=== PATIENT | female | born 1980 | race Caucasian/White ===

== ENCOUNTER 2019-05-03 01:15 | Emergency (ER) | payer BC, OTHER ==
--- NOTE | 2019-05-03 02:20 | ED ---
Laceration/Wound HPI - HPI Summary HPI Summary: A 39 y/o female brought in by [facility] accompanied by family presents to [facility] with a chief complaint of a laceration to her forehead above her right eye after tripping over her dog today and hitting her head on the bedpost. The patient rated her pain at triage as a 6/10 in severity. She claims that it is not painful to move her right eye. She is unsure about her last tetanus. - History of Current Complaint Stated Complaint: HEAD LAC PER EMS Time Seen by Provider: 05/03/19 01:59 Hx Obtained From: Patient Onset/Duration: Sudden Onset, Lasting Hours, Still Present Aggravating: Nothing Alleviating: Nothing Onset Severity: Moderate Current Severity: Moderate Pain Intensity: 6 Pain Scale Used: 0-10 Numeric Associated Signs & Symptoms: Negative - fever - Allergy/Home Medications Allergies/Adverse Reactions: Allergies Allergy/AdvReac Type Severity Reaction Status Date / Time No Known Allergies Allergy Verified 03/08/16 16:05 PMH/Surg Hx/FS Hx/Imm Hx Sensory History: Denies: Hx Deafness EENT History: Denies: Hx Deafness - Immunization History Date of Tetanus Vaccine: unk Immunizations Up to Date: Yes Infectious Disease History: No Infectious Disease History: Denies: Traveled Outside the [place] in Last 30 Days - Family History Known Family History: Positive: None - Social History Alcohol Use: Weekly Alcohol Amount: 5 drinks Hx Substance Use: No Substance Use Type: Reports: None Hx Tobacco Use: Yes Smoking Status (MU): Heavy Every Day Tobacco Smoker Type: Cigarettes Have You Smoked in the Last Year: Yes Review of Systems Negative: Fever Positive: Other - positive: able to move right eye around Positive: Other - positive: laceration above right eye All Other Systems Reviewed And Are Negative: Yes Physical Exam - Summary Physical Exam Summary: Constitutional: Well-developed, Well-nourished, Alert. (-) Distressed Skin: Warm, Dry, laceration is deep to muscle belly on forehead, laceration is crescent shaped 9 cm, lower part of laceration extends onto upper eyelid, full function of ferrule of brow, HENT: Normocephalic; Atraumatic Eyes: Conjunctiva normal, she is able to open and close eyelid without issue, EOMI and painless, pupils are equal and round and reactive. Neck: Musculoskeletal ROM normal neck. (-) JVD, (-) Stridor, (-) Tracheal deviation Cardio: Rhythm regular, rate normal, Heart sounds normal; Intact distal pulses; symmetric. Pulmonary/Chest wall: Effort normal. (-) Respiratory distress, (-) Wheezes, (-) Rales Abd: Soft, (-) tenderness, (-) Distension, (-) Guarding, (-) Rebound Musculoskeletal: (-) Edema, no bony deformity Neuro: Alert, Oriented x3 Psych: Mood and affect Normal Triage Information Reviewed: Yes Vital Signs On Initial Exam: Initial Vitals Temp Pulse Resp BP Pulse Ox 98.5 F 85 17 134/100 99 05/03/19 01:25 05/03/19 01:25 05/03/19 01:25 05/03/19 01:25 05/03/19 01:25 Vital Signs Reviewed: Yes Diagnostics - Vital Signs Vital Signs Temp Pulse Resp BP Pulse Ox 05/03/19 01:25 98.5 F 85 17 134/100 99 - Laboratory Lab Statement: Any lab studies that have been ordered have been reviewed, and results considered in the medical decision making process. Laceration Repair Course/Dx - Course Course Of Treatment: A 39 y/o female brought in by [facility] ambulance accompanied by family presents to [facility] with a chief complaint of a laceration to her forehead above her right eye after tripping over her dog today and hitting her head on the bedpost. The physical exam revealed no bony deformity, laceration is deep to muscle belly on forehead, laceration is crescent shaped 9 cm, lower part of laceration extends onto upper eyelid, full function of ferrule of brow, she is able to open and close eyelid without issue, EOMI and painless, pupils are equal and round and reactive. In the ED course the patient was given Boostrix Syr. The patient will be transferred. Dx: complicated laceration of face involving right upper eyelid. Discussed case with Dr. Constantino at [facility], who will accept the patient for transfer. The patient will be transferred and is agreeable with this plan. - Clinical Impression Provider Diagnoses: Laceration of face, complicated Discharge - Sign-Out/Discharge Documenting (check all that apply): Patient Departure - transfer Patient Received Moderate/Deep Sedation with Procedure: No - Discharge Plan Condition: Fair Disposition: TRANS [facility] FAC Referrals: James Quintero MD [Primary Care Provider] - - Billing Disposition and Condition Condition: FAIR Disposition: Trans Higher Lvl of Care Fac - Attestation Statements Document Initiated by David: Yes Documenting Scribe: Kurtis Gage Provider For Whom David is Documenting (Include Credential): Shaheed Murry MD Scribe Attestation: I, Kurtis Gage, scribed for Shaheed Murry MD on 05/03/19 at 0313. Scribe Documentation Reviewed: Yes Provider Attestation: The documentation as recorded by the Kurtis pedraza accurately reflects the service I personally performed and the decisions made by me, Shaheed Murry MD Status of Scrsravanthie Document: Viewed Consult Consult: At 02:[address] Constantino at [facility], who will accept the patient for transfer.
[2019-05-03] MEDS ORDERED: Tetan/Diph/Pertus SYR(Tdap)* 0.5 ML SYR(BOOSTRIX) use SYR IM ONE (02:30)
[2019-05-03 02:44] VITALS: BP 154/90
== END 2019-05-03 03:45 | disposition short-term general hospital (02) ==
LOC: ED 01:15
DX: S01.81XA Laceration without foreign body of other part of head, initial encounter (principal); Z23 Encounter for immunization; F17.210 Nicotine dependence, cigarettes, uncomplicated; W01.0XXA Fall on same level from slipping, tripping and stumbling without subsequent striking against object, initial encounter
CPT/HCPCS: 90471; 90715; 99283